=== PATIENT | male | born 1995 | race Hispanic/Latino ===

== ENCOUNTER 2024-11-15 23:12 | Emergency (ER) | payer SELFPAY ==
[2024-11-15] MEDS ORDERED: LORazepam 2 MG/ML VIAL ONE (23:16)
[2024-11-15] MEDS ORDERED: NA CHLORIDE 0.9% 1,000 ML ONE (23:24)
[2024-11-15 23:46] LABS: Absolute Basophils 0.1 K/uL (0-0.5); Absolute Eosinophils 0.2 K/uL (0-0.5); Absolute Lymphocytes (CBC) 5.8 K/uL (0.7-4.9); Absolute Monocytes 1.3 K/uL (0.1-1.3); Absolute Neutrophil 12.5 K/uL (1.8-8.0); Basophils % 0.4 % (0-1.3); Eosinophils % 0.8 % (0-4.4); Hemoglobin 16.1 g/dL (13.6-17.9); Lymphocytes % 29.2 % (15.3-44.8); MCH 30.4 pg (27.0-35.0); MCHC 33.4 g/dL (32.0-36.0); MCV 90.8 fL (80-100); MPV 9.2 fL (7.6-11.3); Monocytes % 6.6 % (3.3-12.3); Platelets 298 thou/uL (152-406); RBC Red Blood Cell Count 5.29 M/uL (4.33-5.43); Red Cell Distribution Width 13.5 % (12.1-15.2)
[2024-11-15 23:48] LABS: PT Prothrombin Time 11.8 SECONDS (10-13.0); PTT, Activated Partial Thromb 32.9 SECONDS (27.2-37.4); Protime INR 1.04
[2024-11-16 00:01] LABS: ALT/SGPT 33 U/L (16-61); AST/SGOT 16 U/L (15-37); Albumin 3.9 g/dL (3.4-5.0); Alkaline Phosphatase 107 U/L (45-117); Anion Gap 15.5 mEq/L (5.0-15.0); BUN Blood Urea Nitrogen 15 mg/dL (7-18); Bicarbonate 22 mEq/L (21-32); Bilirubin Direct < 0.2 mg/dL (0-0.2); Bilirubin Indirect, Calculated 0.2 mg/dL (0.2-0.8); Bilirubin Total 0.4 mg/dL (0.2-1.0); Globulin 4.1 g/dL (2.3-3.5); Glomerular Filtration Rate 99 ml/min (=/>90); Glucose Level 162 mg/dL (74-106); Sodium Level 139 mEq/L (136-145)
[2024-11-16 00:08] LABS: Potassium 2.5 mEq/L (3.5-5.1)
[2024-11-16] MEDS ORDERED: KCL 20 MEQ/100 mL IVPB 100 ML IV ONE (00:34)
[2024-11-16 00:51] LABS: Magnesium 2.4 mg/dL (1.6-2.4)
[2024-11-16] MEDS ORDERED: NA CHLORIDE 0.9% 1,000 ML ONE (00:58)
[2024-11-16 01:19] LABS: Specific Gravity 1.015 (1.005-1.030); Urine Bilirubin NEGATIVE (Negative); Urine Blood Negative (Negative); Urine Clarity Clear (Clear); Urine Color Light-Yellow (Yellow); Urine Glucose TRACE (Negative); Urine Ketones TRACE (Negative); Urine Microscopic Reflex YN NO UMIC; Urine Nitrite NEGATIVE (Negative); Urine Protein NEGATIVE (Negative); Urine Urobilinogen Normal (Normal); Urine pH 5.5 (5.0-7.0)
[2024-11-16] MEDS ORDERED: LABETALOL 20 MG/4ML SYRINGE IV ONE (01:28)
[2024-11-16 01:55] LABS: Barbiturates NEGATIVE (NEGATIVE); Benzodiazepines NEGATIVE (NEGATIVE); Cocaine NEGATIVE (NEGATIVE); METHAMPHETAM NEGATIVE (NEGATIVE); Methadone NEGATIVE (NEGATIVE); Opiates NEGATIVE (NEGATIVE); Phencyclidine NEGATIVE (NEGATIVE); THC Cannibis POSITIVE (NEGATIVE)
--- NOTE | 2024-11-16 02:40 | RAD REPORT ---
EXAM: CT Head Without Intravenous Contrast CLINICAL HISTORY: The patient is 29 years old and is Male; MENTAL STATUS CHANGE TECHNIQUE: Axial computed tomography images of the head/brain without intravenous contrast. Sagittal and cor onal reformatted images were created and reviewed. This CT exam was performed using one or more of the following dose reduction techniques: automated exposure control, adjustment of the mA and/or kV according to patient size, and/or use of iterative reconstruction technique. COMPARISON: No relevant prior studies available. FINDINGS: BRAIN: Unremarkable. The hess-white matter differentiation is preserved . No hemorrhage. No s ignificant white matter disease. No edema. No extra-axial fluid collections. VENTRICLES: Unremarkable. No ventriculomegaly. BONES/JOINTS: No acute fracture. SOFT TISSUES: Unremarkable. SINUSES: Unremarkable as visualized. No acute sinusitis. MASTOID AIR CELLS: Unremarkable as visualized. No mastoid effusion. ORBITS: Unremarkable as visualized. IMPRESSION: No acute intracranial findings. Electronically signed by: Gosia Calvert MD 11/16/2024 02:31 AM CDT RP Due to temporary technical issues with the PACS/Blink for iPhone and Android reporting system, reports are being connie d by the in-house radiologist without review as a courtesy to ensure prompt reporting the interpreting radiologist is fully responsible for the content of the report. Transcribed Date/Time: 11/16/2024 2:39 AM
[2024-11-16] MEDS ORDERED: POTASSIUM 25 MEQ EFFERV TAB ONE (02:49)
--- NOTE | 2024-11-16 03:19 | EDPHYS ---
Physician Documentation [facility] Name: Espinoza Dewitt Age: 29 yrs Sex: Male : 1995 Arrival Date: 11/15/2024 Time: 23:12 Bed 3 Private MD: ED Physician Tip Renee HPI: 11/15 23:20 This 29 yrs old Male presents to ER via EMS with complaints of Drug Abuse, Altered cp Mental Status. 23:20 The patient presents with confusion, disorientation, to place, to time. cp 23:20 Onset: The symptoms/episode began/occurred today. Possible causes: drug use, edible THC cp gummy. Associated signs and symptoms: Pertinent negatives: abdominal pain, chest pain, diarrhea, vomiting. Historical: - Allergies: 23:15 No Known Allergies; al5 - PMHx: 23:15 Hypertensive disorder; al5 - PSHx: 23:15 None; al5 - Immunization history:: Adult Immunizations up to date. - Infectious Disease History:: Denies. - Social history:: Smoking status: Patient denies any tobacco usage or history of. Patient uses THC gummies. ROS: 23:25 Neuro: Positive for altered mental status, Negative for loss of consciousness, seizure cp activity, syncope, 23:25 Eyes: Negative for injury, pain, redness, and discharge, cp 23:25 Constitutional: Negative for fever, poor PO intake, 23:25 Cardiovascular: Negative for chest pain, 23:25 Respiratory: Negative for cough, wheezing, 23:25 Abdomen/GI: Negative for abdominal pain, vomiting, diarrhea, constipation, 23:25 Skin: Negative for rash, 23:25 All other systems are negative, cp Exam: 23:28 ECG was reviewed by the Attending Physician. cp 23:30 Constitutional: The patient appears in no acute distress, alert, awake, cp non-diaphoretic, non-toxic, well developed, well nourished, obese, 23:30 Head/Face: Normocephalic, atraumatic. cp 23:30 Eyes: Periorbital structures: appear normal, Pupils: equal, round, and reactive to light and accomodation, Conjunctiva: normal, no exudate, no injection, Sclera: no appreciated abnormality, Lids and lashes: appear normal, bilaterally, 23:30 ENT: External ear(s): are unremarkable, Nose: is normal, Mouth: Lips: moist, Oral mucosa: moist, Posterior pharynx: Airway: no evidence of obstruction, patent, 23:30 Neck: ROM/movement: Meningeal signs: are not present, nuchal rigidity, is not appreciated, 23:30 Chest/axilla: Inspection: normal, Palpation: is normal, no crepitus, no tenderness, 23:30 Cardiovascular: Rate: tachycardic, Rhythm: regular, Edema: is not appreciated, JVD: is not appreciated, 23:30 Respiratory: the patient does not display signs of respiratory distress, Respirations: normal, no use of accessory muscles, no retractions, labored breathing, is not present, Breath sounds: are clear throughout, no decreased breath sounds, no stridor, no wheezing, 23:30 Abdomen/GI: Inspection: abdomen appears normal, Palpation: abdomen is soft and non-tender, in all quadrants, 23:30 Neuro: Orientation: to person, situation, Mentation: able to follow commands, Motor: moves all fours, no focal deficits, 11/16 03:05 ECG was reviewed by the Attending Physician. cp Vital Signs: 11/15 23:13 BP 189 / 122; Pulse 124; Resp 26; Temp 97.3; Pulse Ox 100% on R/A; Weight 108.86 kg; al5 Height 5 ft. 9 in. ; 23:25 BP 154 / 83; Pulse 118; Resp 25; Pulse Ox 100% ; al5 23:45 BP 126 / 82; Pulse 81; Resp 15; Pulse Ox 100% ; al5 0407 00:00 BP 145 / 87; Pulse 127; Resp 18; Pulse Ox 100% ; al5 00:30 BP 139 / 59; Pulse 127; Resp 17; Pulse Ox 99% ; al5 01:00 BP 143 / 91; Pulse 130; Resp 17; Pulse Ox 97% ; al5 01:37 BP 143 / 72; br2 02:00 BP 142 / 83; Pulse 112; Resp 15; Pulse Ox 95% ; al5 02:30 BP 134 / 91; Pulse 115; Resp 16; Pulse Ox 96% ; al5 03:04 BP 139 / 79; Pulse 116; Resp 18; Pulse Ox 96% on R/A; al5 03:35 BP 125 / 81; Pulse 113; Resp 18; Pulse Ox 94% ; vc1 11/15 23:13 Body Mass Index 35.44 (108.86 kg, 175.26 cm) al5 MDM: 11/15 23:16 Medical Screening Exam initiated 11/16 00:00 Differential Diagnosis: CVA, electrolyte abnormality, alcohol intoxication, cp intracranial bleed, overdose, pneumonia, seizure, sepsis, illegal drug use. 03:17 Data reviewed: vital signs, nurses notes, lab test result(s), EKG, radiologic studies, cp CT scan, and as a result, I will discharge patient. 03:17 I considered the following discharge prescriptions or medication management in the emergency department Medications were administered in the Emergency Department. See MAR. Independent interpretation of the following test(s) in the Emergency Department EKG: See my EKG interpretation above. Care significantly affected by the following chronic conditions: Hypertension. Counseling: I had a detailed discussion with the patient and/or guardian regarding the historical points, exam findings, and any diagnostic results supporting the discharge/admit diagnosis, lab results, radiology results, the need for outpatient follow up, a family practitioner, to return to the emergency department if symptoms worsen or persist or if there are any questions or concerns that arise at home. Response to treatment: the patient's symptoms have markedly improved after treatment, and as a result, I will discharge patient. 04 23:15 Order name: Acetaminophen; Complete Time: 00:53 11/15 23:15 Order name: Basic Metabolic Panel; Complete Time: 00:53 11/16 00:53 Interpretation: Normal except: K 2.5; ANION GAP 15.5; GLUC 162. 11/15 23:15 Order name: CBC with Diff; Complete Time: 00:17 11/16 03:03 Interpretation: Normal except: WBC 19.80; NEUT A 12.5; LYMA 5.8. 11/15 23:15 Order name: ETOH Level; Complete Time: 00:17 11/15 23:15 Order name: Hepatic Function; Complete Time: 00:53 11/15 23:15 Order name: PT-INR; Complete Time: 00:17 11/15 23:15 Order name: Ptt, Activated; Complete Time: 00:17 11/15 23:15 Order name: Salicylate; Complete Time: 00:17 11/15 23:15 Order name: Urinalysis w/ reflexes; Complete Time: 02:23 cp 11/16 02:23 Interpretation: Normal except: UGLUC TRACE; UKET TRACE. cp 11/15 23:15 Order name: Urine Drug Screen; Complete Time: 02:23 cp 11/16 00:23 Order name: Magnesium; Complete Time: 00:53 EDMS 11/15 23:42 Order name: CT Head Brain wo Cont cp 11/15 23:15 Order name: EKG; Complete Time: 23:16 cp 11/15 23:15 Order name: EKG - Nurse/Tech; Complete Time: 23:19 cp 11/15 23:15 Order name: IV Saline Lock; Complete Time: 23:19 cp 11/15 23:15 Order name: Labs collected and sent; Complete Time: 23:19 cp 11/15 23:15 Order name: Suicide Screening ([place]); Complete Time: 23:19 cp 11/16 02:47 Order name: EKG - Nurse/Tech; Complete Time: 03:04 cp EC/06 23:28 Rate is 126 beats/min. Rhythm is regular. WA interval is normal. QRS interval is cp prolonged at 108 msec. QT interval is normal. T waves are Inverted in lead aVR. Interpreted by me. Reviewed by me. 11/16 03:05 Rate is 113 beats/min. Rhythm is regular. WA interval is normal. QRS interval is cp normal. QT interval is normal. T waves are Inverted in lead aVR. Interpreted by me. Reviewed by me. Administered Medications: 11/15 23:19 Drug: Ativan IVP 2 mg IVP once Route: IVP; Site: left antecubital; vc1 11/16 02:40 Follow up: Response: No adverse reaction; Anxiety decreased; RASS: Alert and Calm (0) al5 11/15 23:28 Drug: NS 0.9% IV 1000 ml IV at 1 bolus Per protocol; to be given as a bolus over 60 vc1 minutes Route: IV; Rate: 1 bolus; Site: left antecubital; 11/16 02:40 Follow up: Response: No adverse reaction; IV Status: Completed infusion; IV Intake: al5 1000ml 00:40 Drug: Potassium Chloride IV 20 mEq IV at calculated rate once; administer over 1-2 jb4 hours Route: IV; Rate: calculated rate; Site: left antecubital; 02:44 Follow up: Response: No adverse reaction; IV Status: Completed infusion; IV Intake: al5 100ml 01:00 Drug: NS 0.9% IV 1000 ml IV at 1000 ml once; to be given as a bolus over 60 minutes jb4 Route: IV; Rate: 1000 ml; Site: left antecubital; 02:39 Follow up: Response: No adverse reaction; IV Status: Completed infusion; IV Intake: al5 1000ml 01:37 Drug: Labetalol IV 10 mg IV at calculated rate once Route: IV; Rate: calculated rate; br2 Site: left antecubital; 02:42 Follow up: Response: No adverse reaction; Blood pressure is lowered; IV Status: al5 Completed infusion; IV Intake: 2ml 02:40 CANCELLED (Physician Discretion): [id number] mg PO once; if systolic pressure over 140cp 02:52 Not Given (Other Intervention Used): potassium [id number] meq IV at calculated rate al5 once; administer over 1-2 hours 02:52 Drug: Potassium PO Effervescent Tablet 50 mEq PO once; dissolve in 4 ounces of water or al5 juice Route: PO; 03:38 Follow up: Response: No adverse reaction; Marked relief of symptoms vc1 02:52 Drug: Potassium PO Effervescent Tablet 25 mEq PO once; dissolve in 4 ounces of water or al5 juice Route: PO; 03:38 Follow up: Response: No adverse reaction; Marked relief of symptoms vc1 Disposition: 04:51 Co-signature as Attending Physician, Tip Renee MD I agree with the assessment and shine plan of care. Disposition Summary: 11/16/24 03:18 Discharge Ordered Notes: Location: Home cp Problem: new cp Symptoms: have improved cp Condition: Stable cp Diagnosis - Hypokalemia cp - Adverse effect of cannabis (derivatives), initial encounter cp Followup: cp - With: Private Physician - When: 2 - 3 days - Reason: Recheck today's complaints Discharge Instructions: - Discharge Summary Sheet cp - Potassium Content of Foods cp - Hypokalemia cp - Preventing Marijuana Misuse cp - Illegal Drug Use Information, Adult cp Forms: - Medication Reconciliation Form cp - Antibiotic Education cp - Prescription Opioid Use cp - Patient Portal Instructions cp - Leadership Thank You Letter cp Prescriptions: - Potassium Chloride 20 meq Oral Packet - take 1 packet ORAL route once daily for 5 days 1 packet in 6 (six) ounces of cp water or juice; Take after meal; 5 packet; Refills: 0, Product Selection Permitted Signatures: Dispatcher [employer] EDMS Tip Renee MD MD cha Page, Corey, PA PA cp Amauri Marsh, RN RN jb4 Mel Harry RN RN vc1 Berenice Bruner RN RN al5 Aruna Kumar RN RN br2 Corrections: (The following items were deleted from the chart) 11/15 23:42 23:42 Head Brain Wo Cont+CT.RAD.BRZ ordered. EDMS EDMS 11/16 00:20 00:18 MAGNESIUM+C.LAB.BRZ ordered. EDMS EDMS 02:40 11/15 23:42 Tucker ordered. cp al5 11/16 02:40 02:40 Metoprolol PO 50 mg PO once; if systolic pressure over 140 ordered. cp cp
--- NOTE | 2024-11-16 03:19 | ER ---
Nurse's Notes [facility] Name: Espinoza Dewitt Age: 29 yrs Sex: Male : 1995 Arrival Date: 11/15/2024 Time: 23:12 Bed 3 Private MD: Diagnosis: Hypokalemia;Adverse effect of cannabis (derivatives), initial encounter Presentation: 11/15 23:13 Chief complaint: Patient states: took a THC 1500 mg gummy at 2100 today, started to al5 experience anxiety, thoughts not making sense to situation, altered mental status, hyperventilation, and hyperverbal. Coronavirus screen: At this time, the client does not indicate any symptoms associated with coronavirus-19. Ebola Screen: No symptoms or risks identified at this time. Initial Sepsis Screen: Does the patient meet any 2 criteria? No. Patient's initial sepsis screen is negative. Does the patient have a suspected source of infection? No. Patient's initial sepsis screen is negative. Risk Assessment: Do you want to hurt yourself or someone else? Patient reports no desire to harm self or others. Onset of symptoms was November 15, 2024. 23:13 Method Of Arrival: EMS: [facility] al5 23:13 Acuity: LIYA 3 al5 Triage Assessment: 23:16 General: Appears distressed, Behavior is anxious, restless. Pain: Denies pain. EENT: No al5 signs and/or symptoms were reported regarding the EENT system. Neuro: Level of Consciousness is awake, confused, Oriented to person, situation. Cardiovascular: Capillary refill < 3 seconds Patient's skin is warm and dry. Rhythm is sinus tachycardia. Respiratory: Airway is patent Respiratory effort is even, unlabored, Respiratory pattern is regular, symmetrical. GI: No signs and/or symptoms were reported involving the gastrointestinal system. : No signs and/or symptoms were reported regarding the genitourinary system. Derm: Skin is intact, is healthy with good turgor, Skin is pink, warm \\T\\ dry. normal. Musculoskeletal: No signs and/or symptoms reported regarding the musculoskeletal system. Historical: - Allergies: 23:15 No Known Allergies; al5 - PMHx: 23:15 Hypertensive disorder; al5 - PSHx: 23:15 None; al5 - Immunization history:: Adult Immunizations up to date. - Infectious Disease History:: Denies. - Social history:: Smoking status: Patient denies any tobacco usage or history of. Patient uses THC gummies. Screenin:18 [facility] ED Fall Risk Assessment (Adult) History of falling in the last 3 months, al5 including since admission No falls in past 3 months (0 pts) Confusion or Disorientation Yes (5 pts) Intoxicated or Sedated No (0 pts) Impaired Gait No (0 pts) Mobility Assist Device Used No (0 pt) Altered Elimination No (0 pt) Score/Fall Risk Level 3 or more points = High Risk Oriented to surroundings, Maintained a safe environment, Hourly rounding (assess needs \\T\\ fall precautionary measures) done, Utilized family, sitter, or virtual data warehouse specialist as indicated. Abuse screen: Denies threats or abuse. Denies injuries from another. Nutritional screening: No deficits noted. Tuberculosis screening: No symptoms or risk factors identified. Assessment: 23:18 Reassessment: see triage assessment. al5 11/16 01:26 Reassessment: Patient appears in no apparent distress at this time. Patient and/or al5 family updated on plan of care and expected duration. Pain level reassessed. Patient is alert, oriented x 3, equal unlabored respirations, skin warm/dry/pink. Patient states feeling better. 02:37 Reassessment: Patient appears in no apparent distress at this time. Patient and/or al5 family updated on plan of care and expected duration. Pain level reassessed. Patient is alert, oriented x 3, equal unlabored respirations, skin warm/dry/pink. Patient states feeling better. 03:35 Reassessment: Patient appears in no apparent distress at this time. No changes from vc1 previously documented assessment. Patient and/or family updated on plan of care and expected duration. Pain level reassessed. Patient is alert, oriented x 3, equal unlabored respirations, skin warm/dry/pink. Patient denies pain at this time. Overdose: 11/15 23:21 [place] Suicide Severity Screening: "In the past month, have you wished you were al5 or wished you could go to sleep and not wake up?" Patient responds "no." "In the past month, have you actually had any thoughts of killing yourself?" Patient responds "no." "In your lifetime, have you ever done anything, started to do anything, or prepared to do anything to end your life?" Patient responds "no.". 23:21 [place] Suicide Severity Screening: "In the past month, have you wished you were al5 or wished you could go to sleep and not wake up?" "In the past month, have you actually had any thoughts of killing yourself?" Patient responds "yes." Based off client's responses, additional C-SSRS screening questions required. 23:21 [place] Suicide Severity Screening: "In the past month, have you wished you were al5 or wished you could go to sleep and not wake up?" Patient responds "yes." Based off client's responses, additional C-SSRS screening questions required. Patient took 1500 mg THC gummy. Vital Signs: 23:13 BP 189 / 122; Pulse 124; Resp 26; Temp 97.3; Pulse Ox 100% on R/A; Weight 108.86 kg; al5 Height 5 ft. 9 in. ; 23:25 BP 154 / 83; Pulse 118; Resp 25; Pulse Ox 100% ; al5 23:45 BP 126 / 82; Pulse 81; Resp 15; Pulse Ox 100% ; al5 07 00:00 BP 145 / 87; Pulse 127; Resp 18; Pulse Ox 100% ; al5 00:30 BP 139 / 59; Pulse 127; Resp 17; Pulse Ox 99% ; al5 01:00 BP 143 / 91; Pulse 130; Resp 17; Pulse Ox 97% ; al5 01:37 BP 143 / 72; br2 02:00 BP 142 / 83; Pulse 112; Resp 15; Pulse Ox 95% ; al5 02:30 BP 134 / 91; Pulse 115; Resp 16; Pulse Ox 96% ; al5 03:04 BP 139 / 79; Pulse 116; Resp 18; Pulse Ox 96% on R/A; al5 03:35 BP 125 / 81; Pulse 113; Resp 18; Pulse Ox 94% ; vc1 11/15 23:13 Body Mass Index 35.44 (108.86 kg, 175.26 cm) al5 ED Course: 11/15 23:12 Patient arrived in ED. al5 23:14 Tip Mei PA is PHCP. cp 23:14 Tip Renee MD is Attending Physician. cp 23:15 Triage completed. al5 23:18 Arm band placed on right wrist. Patient placed in the treatment room, in view of staff al5 members, on mutuel machine operator, on pulse oximetry. 23:19 Mel Harry, RN is Primary Nurse. vc1 23:19 Patient has correct armband on for positive identification. Bed in low position. Call al5 light in reach. Side rails up X2. Provided Education on: plan of care. 23:19 No provider procedures requiring assistance completed. Inserted saline lock: 20 gauge al5 in left antecubital area, using aseptic technique. Blood collected. Flushed with 10 mL NS. 23:20 Salicylate Sent. vc1 23:20 Ptt, Activated Sent. vc1 23:20 PT-INR Sent. vc1 23:20 Hepatic Function Sent. vc1 23:20 ETOH Level Sent. vc1 23:20 CBC with Diff Sent. vc1 23:20 Basic Metabolic Panel Sent. vc1 23:20 Acetaminophen Sent. vc1 23:22 EKG done, by ED staff. sa1 11/16 01:35 CT Head Brain wo Cont In Process Unspecified. EDMS 03:36 IV discontinued, intact, bleeding controlled, No redness/swelling at site. Pressure vc1 dressing applied. Administered Medications: 11/15 23:19 Drug: Ativan IVP 2 mg IVP once Route: IVP; Site: left antecubital; vc1 11/16 02:40 Follow up: Response: No adverse reaction; Anxiety decreased; RASS: Alert and Calm (0) al5 11/15 23:28 Drug: NS 0.9% IV 1000 ml IV at 1 bolus Per protocol; to be given as a bolus over 60 vc1 minutes Route: IV; Rate: 1 bolus; Site: left antecubital; 11/16 02:40 Follow up: Response: No adverse reaction; IV Status: Completed infusion; IV Intake: al5 1000ml 00:40 Drug: Potassium Chloride IV 20 mEq IV at calculated rate once; administer over 1-2 jb4 hours Route: IV; Rate: calculated rate; Site: left antecubital; 02:44 Follow up: Response: No adverse reaction; IV Status: Completed infusion; IV Intake: al5 100ml 01:00 Drug: NS 0.9% IV 1000 ml IV at 1000 ml once; to be given as a bolus over 60 minutes jb4 Route: IV; Rate: 1000 ml; Site: left antecubital; 02:39 Follow up: Response: No adverse reaction; IV Status: Completed infusion; IV Intake: al5 1000ml 01:37 Drug: Labetalol IV 10 mg IV at calculated rate once Route: IV; Rate: calculated rate; br2 Site: left antecubital; 02:42 Follow up: Response: No adverse reaction; Blood pressure is lowered; IV Status: al5 Completed infusion; IV Intake: 2ml 02:40 CANCELLED (Physician Discretion): [id number] mg PO once; if systolic pressure over 140cp 02:52 Not Given (Other Intervention Used): potassium [id number] meq IV at calculated rate al5 once; administer over 1-2 hours 02:52 Drug: Potassium PO Effervescent Tablet 50 mEq PO once; dissolve in 4 ounces of water or al5 juice Route: PO; 03:38 Follow up: Response: No adverse reaction; Marked relief of symptoms vc1 02:52 Drug: Potassium PO Effervescent Tablet 25 mEq PO once; dissolve in 4 ounces of water or al5 juice Route: PO; 03:38 Follow up: Response: No adverse reaction; Marked relief of symptoms vc1 Medication: 11/15 23:18 VIS not applicable for this client. al5 Intake: 11/16 02:39 IV: 1000ml; Total: 1000ml. al5 02:40 IV: 1000ml; Total: 2000ml. al5 02:42 IV: 2ml; Total: 2002ml. al5 02:44 IV: 100ml; Total: 2102ml. al5 Outcome: 03:18 Discharge ordered by . cp 03:36 Discharged to home ambulatory, with family, vc1 03:36 Condition: stable 03:36 Discharge instructions given to patient, family, Instructed on discharge instructions, follow up and referral plans. medication usage, Demonstrated understanding of instructions, follow-up care, medications, Prescriptions given X 1, 03:50 Patient left the ED. vc1 Signatures: Dispatcher [employer] EDMS Tip Mei PA PA cp Bryson, James, RN RN jb4 Mel Harry RN RN vc1 Berenice Bruner RN RN al5 Sultan Wendy sa1 Aruna Kumar RN RN br2 Corrections: (The following items were deleted from the chart) 11/15 23:18 23:13 Chief complaint: Patient states: took a THC 1500 mg gummy at 2100 today, started al5 to experience anxiety, thoughts not making sense to situation, and hyperverbal al5 23:26 23:13 Chief complaint: Patient states: took a THC 1500 mg gummy at 2100 today, started al5 to experience anxiety, thoughts not making sense to situation, altered mental status, and hyperverbal al5 23:26 23:13 BP 189 / 122; Pulse 124bpm; Resp 18bpm; Pulse Ox 100% RA; Temp 97.3F; 108.86 kg; al5 Height 5 ft. 9 in.; BMI: 35.4; al5
[2024-11-16 04:01] VITALS: TEMP 97.3
[2024-11-16 04:25] VITALS: BP 125/81; O2SAT 94
--- NOTE | 2024-11-16 11:29 | EKG ---
Test Date: 2024-11-16 Test Time: 02:56:22 Software Validation Engineer: MEASUREMENT RESULTS: Intervals: Rate: 113 [place]: 152 QRSD: 92 QT: 338 QTc: 463 [place]: P: 42 [place]: 152 QRS: 55 T: 49 INTERPRETIVE STATEMENTS: Sinus tachycardia Nonspecific T wave abnormality Abnormal ECG No previous ECG available for comparison Electronically Signed On 11-16-24 11:28:16 CDT by Oscar Keenan
--- NOTE | 2024-11-17 10:58 | EKG ---
Test Date: 2024-11-15 Test Time: 23:22:41 Cane Cutter: MEASUREMENT RESULTS: Intervals: Rate: 126 [place]: 140 QRSD: 108 QT: 336 QTc: 486 [place]: P: 41 [place]: 140 QRS: 64 T: 36 INTERPRETIVE STATEMENTS: Sinus tachycardia ST & T wave abnormality, consider inferior ischemia Abnormal ECG No previous ECG available for comparison Electronically Signed On 11-17-24 10:55:38 CDT by Oscar Keenan
== END 2024-11-16 03:50 | disposition home or self-care (01) ==
LOC: ER 23:12
DX: E87.6 Hypokalemia (principal); T40.715A Adverse effect of cannabis, initial encounter
CPT/HCPCS: 36415; 70450; 80048; 80076; 80143; 80179; 80307; 81003; 82077; 83735; 85025; 85610; 85730; 93005; 96361; 96365; 96375; 99285; J3480; J7030